=== PATIENT | male | born 1975 | race Caucasian/White ===

== ENCOUNTER 2022-06-14 19:15 | Outpatient (CLI) | payer OTHER, SELFPAY ==
[2022-06-14 21:38] LABS: Albumin* 4.7 g/dL (3.3-5.0)
[2022-06-14 21:41] LABS: Alkaline Phosphatase* 84 U/L (40-150); Aspartate Amino Transferase* 31 U/L (12-35); Bilirubin Direct* 0.2 mg/dL (0.0-0.5); Bilirubin Total* 0.6 mg/dL (0.1-1.5); Total Protein* 7.6 g/dL (6.0-8.3)
[2022-06-14 21:42] LABS: Alanine Aminotransferase* 32 U/L (4-50)
== END 2022-06-14 19:16 | disposition home or self-care (01) ==
PROVIDERS: PCP Family Medicine; Visit Provider Family Medicine
DX: Z79.899 Other long term (current) drug therapy (principal)
CPT/HCPCS: 80076

== ENCOUNTER 2023-10-20 08:43 | Outpatient (REF) | payer OTHER, SELFPAY | END 2023-10-20 08:44 | disposition home or self-care (01) | LOC: NFLDREF 08:43 | PROVIDERS: PCP Family Medicine; Referring Provider Family Medicine; Visit Provider Family Medicine | DX: Z00.00 Encounter for general adult medical examination without abnormal findings (principal); R79.89 Other specified abnormal findings of blood chemistry; N52.9 Male erectile dysfunction, unspecified; Z13.6 Encounter for screening for cardiovascular disorders; Z12.5 Encounter for screening for malignant neoplasm of prostate | CPT/HCPCS: 80053; 80061; 84153; 84270; 84402; 84403 ==